=== PATIENT | male | born 1950 | race Caucasian/White ===

== ENCOUNTER → 2016-03-02 | Outpatient (CLI) | payer MEDICARE ==
[~2016-03-02] MED LIST: BIAXIN500 MG PO; CARDI-OMEGA1000 MG PO; CLARITIN D TAB1 TAB PO; CLARITIN-D 10 M1 T24 PO; DIOVAN160 M1 PO; FISH OIL CONC1000 MG PO; NASACORT AQ N16.5 GM NS; NASACORT IH
[2016-03-02 13:55] LABS: ANION GAP 9 mmol/L (7-16); BLOOD UREA NITROGEN 12 mg/dL (9-20); CALCIUM 9.4 mg/dL (8.4-10.2); CARBON DIOXIDE 24 mmol/L (22-30); CHLORIDE 104 mmol/L (98-107); GLUCOSE 122 mg/dL (74-106); POTASSIUM 4.3 mmol/L (3.4-5.0); SODIUM 137 mmol/L (137-145)
[2016-03-02 14:34] LABS: URINE COLLECTION TIME 24 HOURS
== END ==
LOC: COL.LAB 13:12
PROVIDERS: Internal Medicine Nephrology
DX: I10 Essential (primary) hypertension (principal); N05.2 Unspecified nephritic syndrome with diffuse membranous glomerulonephritis

== ENCOUNTER → 2017-03-01 | Outpatient (CLI) | payer MEDICARE, BC | LOC: COL.VAS 10:45 | DX: I65.23 Occlusion and stenosis of bilateral carotid arteries (principal) ==

== ENCOUNTER → 2017-03-01 | Outpatient (CLI) | payer MEDICARE, BC ==
[2017-03-01 12:31] LABS: URINE TOTAL VOLUME 2500 mL
[2017-03-01 12:34] LABS: CALCIUM 9.5 mg/dL (8.4-10.2); CREATININE, serum 1.06 mg/dL (0.66-1.25); POTASSIUM 4.6 mmol/L (3.4-5.0)
[2017-03-01 12:56] LABS: CREATININE, serum 1.06 mg/dL (0.66-1.25); URINE CREATININE CLEARANCE 101.2 mL/min (97-137)
== END ==
LOC: COL.LAB 11:50
PROVIDERS: Internal Medicine Nephrology
DX: Z01.812 Encounter for preprocedural laboratory examination (principal); N05.2 Unspecified nephritic syndrome with diffuse membranous glomerulonephritis; I10 Essential (primary) hypertension

== ENCOUNTER 2017-05-26 08:34 | Day surgery (SDC) | payer MEDICARE, BC ==
[~2017-05-26] VITALS: Ht 188 cm; Wt 98.8 kg
[2017-05-26 09:17] VITALS: BP 147/86; PULSE 76; TEMP 97.7
[2017-05-26] MEDS ORDERED: SINGULAIR 110 MG/TAB PO (09:29)
[2017-05-26] MEDS ORDERED: COZAAR 25MG25 MG/TAB PO (09:29)
[2017-05-26] MEDS ORDERED: RESTASIS0.05% OU (09:30)
[2017-05-26] MEDS ORDERED: MASON NATURAL2000 IU PO (09:31)
[2017-05-26] MEDS ORDERED: ASPIRIN E.C. 8181 MG PO (09:33)
[2017-05-26] MEDS ORDERED: ONE DAILY1 TA1 PO (09:34)
[2017-05-26 13:48] VITALS: TEMP 97.1
[2017-05-26 14:00] VITALS: BP 106/56; PULSE 59
[2017-05-26 14:15] VITALS: BP 116/65; PULSE 59
[2017-05-26 14:30] VITALS: BP 132/61; PULSE 65
[2017-05-26 14:45] VITALS: BP 133/67; PULSE 65
== END 2017-05-26 15:45 | disposition home or self-care (01) ==
LOC: SDCO 08:34
DX: K40.20 Bilateral inguinal hernia, without obstruction or gangrene, not specified as recurrent (principal); I10 Essential (primary) hypertension; Z79.82 Long term (current) use of aspirin; Z80.3 Family history of malignant neoplasm of breast
CPT/HCPCS: A4314; C1781; J0330; J1100; J1885; J2370; J2405; J2550; J2704; J2710; J3010; J7120

== ENCOUNTER → 2018-02-06 | Outpatient (CLI) | payer MEDICARE, BC ==
[~2018-02-06] MED LIST changes: +ASPIRIN E.C. 8181 MG PO; +COZAAR 25MG25 MG/TAB PO; +MASON NATURAL2000 IU PO; +ONE DAILY1 TA1 PO; +RESTASIS0.05% OU; +SINGULAIR 110 MG/TAB PO
[2018-02-06 16:08] LABS: CALCIUM 9.6 mg/dL (8.4-10.2); POTASSIUM 4.1 mmol/L (3.4-5.0)
[2018-02-06 18:01] LABS: URINE 24 HOUR CREATININE 1.5 gm/24 hr (1.0-2.0)
== END ==
LOC: COL.LAB 13:55
PROVIDERS: Internal Medicine Nephrology
DX: N05.2 Unspecified nephritic syndrome with diffuse membranous glomerulonephritis (principal)

== ENCOUNTER → 2019-02-06 | Outpatient (CLI) | payer MEDICARE, BC ==
[2019-02-06 15:52] LABS: ANION GAP 8 mmol/L (7-16); BLOOD UREA NITROGEN 12 mg/dL (9-20); CALCIUM 9.2 mg/dL (8.4-10.2); CARBON DIOXIDE 27 mmol/L (22-30); CHLORIDE 104 mmol/L (98-107); CREATININE, serum 0.92 (0.66-1.25); GLUCOSE 86 mg/dL (74-106); POTASSIUM 4.2 mmol/L (3.4-5.0); SODIUM 138 mmol/L (137-145)
[2019-02-06 16:06] LABS: URINE CREATININE CLEARANCE 101.9 mL/min (97-137); URINE TOTAL VOLUME 2350 mL
== END ==
LOC: COL.LAB 14:54
PROVIDERS: Urology
DX: I10 Essential (primary) hypertension (principal); N05.2 Unspecified nephritic syndrome with diffuse membranous glomerulonephritis

== ENCOUNTER → 2020-06-10 | Outpatient (CLI) | payer MEDICARE, BC ==
[2020-06-10 11:45] LABS: CALCIUM 8.6 mg/dL (8.4-10.2); CREATININE, serum 0.83 (0.66-1.25)
[2020-06-10 12:47] LABS: CREATININE, serum 0.83 (0.66-1.25)
== END ==
LOC: COL.LAB 11:03
PROVIDERS: Internal Medicine Nephrology
DX: N05.2 Unspecified nephritic syndrome with diffuse membranous glomerulonephritis (principal); I10 Essential (primary) hypertension

== ENCOUNTER → 2020-09-16 | Outpatient (CLI) | payer MEDICARE, BC ==
[2020-09-16 11:22] LABS: ANION GAP 1 mmol/L (7-16); BLOOD UREA NITROGEN 11 mg/dL (9-20); CARBON DIOXIDE 27 mmol/L (22-30); CHLORIDE 108 mmol/L (98-107); CREATININE, serum 0.85 (0.66-1.25); GLUCOSE 114 mg/dL (74-106); POTASSIUM 4.2 mmol/L (3.4-5.0); SODIUM 136 mmol/L (137-145)
[2020-09-16 13:33] LABS: URINE TOTAL VOLUME 2050 mL
== END ==
LOC: COL.LAB 10:18
PROVIDERS: Internal Medicine Nephrology
DX: I10 Essential (primary) hypertension (principal); N05.2 Unspecified nephritic syndrome with diffuse membranous glomerulonephritis

== ENCOUNTER → 2020-10-20 | Outpatient (CLI) | payer MEDICARE, BC ==
[2020-10-20 14:10] LABS: CREATININE, serum 0.87 (0.66-1.25)
== END ==
LOC: COL.LAB 12:50
PROVIDERS: Internal Medicine Nephrology
DX: I10 Essential (primary) hypertension (principal); M72.2 Plantar fascial fibromatosis; N05.2 Unspecified nephritic syndrome with diffuse membranous glomerulonephritis; E78.2 Mixed hyperlipidemia

== ENCOUNTER → 2022-03-29 | Outpatient (RCR) | payer MEDICARE, BC | END | disposition home or self-care (01) | LOC: PT.GENESIS | DX: M79.604 Pain in right leg (principal) ==

== ENCOUNTER 2022-05-03 08:32 | Outpatient (RCR) | payer MEDICARE, BC | END 2022-05-27 | disposition home or self-care (01) | LOC: PT.GENESIS | DX: M79.604 Pain in right leg (principal) ==

== ENCOUNTER 2022-11-18 08:15 | Outpatient (RCR) | payer MEDICARE, BC | END 2022-11-26 | disposition home or self-care (01) | LOC: PT.GENESIS | DX: M76.891 Other specified enthesopathies of right lower limb, excluding foot (principal) ==